=== PATIENT | male | born 1985 | race American Indian/Alaskan Native ===

== ENCOUNTER 2019-09-23 21:00 | Emergency (ER) | payer SELFPAY ==
--- NOTE | 2019-09-23 21:58 | Event Note ---
ED Screening Note ED Screening Note: pt presents with sore throat that began today no fever no n/v/d pain with swallowing states he is having difficulty with swallowing spitting out his secretions This initial assessment/diagnostic orders/clinical plan/treatment(s) is/are subject to change based on patients health status, clinical progression and re- assessment by fellow clinical providers in the ED. Further treatment and workup at subsequent clinical providers discretion. Patient/guardian urged not to elope from the ED as their condition may be serious if not clinically assessed and managed. Initial orders include: labs, CT neck
[2019-09-23] MEDS ORDERED: SODIUM CHLORIDE 0.9% 1000 ML 1,000 ML IV ONE (21:59)
[2019-09-23] MEDS ORDERED: CLINDAMYCIN 600 MG/50 mL 600 MG/50 ML BAG IV ONE (21:59)
[2019-09-23] MEDS ORDERED: dexAMETHasone 20 MG/5 ML VIAL IV ONE (21:59)
[2019-09-23 22:00] VITALS: BP 130/74
[2019-09-23 22:53] LABS: Basophils # (Auto) 0.1 K/mm3 (0.0-0.1); Basophils % (Auto) 0.7 % (0.0-1.8); Eosinophils % (Auto) 0.1 % (0.0-4.3); Hematocrit 46.6 % (35.5-45.6); Hemoglobin 15.7 gm/dl (11.8-15.2); Lymphocytes # (Auto) 2.4 K/mm3 (1.2-5.4); Lymphocytes % (Auto) 19.1 % (13.4-35.0); Mean Corpuscular HGB Conc 34 % (32-34); Mean Corpuscular Volume 89 fl (84-94); Monocytes # (Auto) 0.9 K/mm3 (0.0-0.8); Monocytes % (Auto) 7.2 % (0.0-7.3); Platelet Count 186 K/mm3 (140-440); Red Blood Count 5.24 M/mm3 (3.65-5.03); Red Cell Distribution Width 13.8 % (13.2-15.2)
[2019-09-23 23:11] LABS: Alanine Aminotransferase 21 units/L (7-56); Albumin 5.3 g/dL (3.9-5); BUN/Creatinine Ratio 16; Blood Urea Nitrogen 13 mg/dL (9-20); Calcium 9.6 mg/dL (8.4-10.2); Hemolysis Index 19
--- NOTE | 2019-09-24 00:15 | Emergency Department Report ---
ED ENT HPI - General Chief complaint: Sore Throat Stated complaint: SWOLLEN TONSILS Time Seen by Provider: 09/23/19 21:56 Source: patient Mode of arrival: Ambulatory Limitations: No Limitations - History of Present Illness Initial comments: This is a 34-year-old male presents the ED complaining of pain with swallowing started this morning. Patient states that every time he tries to swallow he feels a lot of pain in his throat. Patient states that prior to symptom starting he was drinking some drink which she cannot recall. Patient states he does not have any allergy that he is aware of. Patient denies taking any medication. Patient denies fever/chills/nausea vomiting/abdominal pain/chest pain or shortness of breath. MD complaint: sore throat - Related Data Previous Rx's Medication Instructions Recorded Last Taken Type Nystas/Diphen/Xyl Visc/Mylanta 30 ml MM Q6H PRN #120 ml 09/24/19 Unknown Rx [Magic Mouthwash] predniSONE [Deltasone] 20 mg PO QDAY #6 tab 09/24/19 Unknown Rx Allergies Allergy/AdvReac Type Severity Reaction Status Date / Time No Known Allergies Allergy Verified 09/23/19 21:03 ED Dental HPI - General Chief complaint: Sore Throat Stated complaint: SWOLLEN TONSILS Time Seen by Provider: 09/23/19 21:56 Source: patient Mode of arrival: Ambulatory Limitations: No Limitations - Related Data Previous Rx's Medication Instructions Recorded Last Taken Type Nystas/Diphen/Xyl Visc/Mylanta 30 ml MM Q6H PRN #120 ml 09/24/19 Unknown Rx [Magic Mouthwash] predniSONE [Deltasone] 20 mg PO QDAY #6 tab 09/24/19 Unknown Rx Allergies Allergy/AdvReac Type Severity Reaction Status Date / Time No Known Allergies Allergy Verified 09/23/19 21:03 ED Review of Systems ROS: Stated complaint: SWOLLEN TONSILS Other details as noted in HPI Comment: All other systems reviewed and negative ED Past Medical Hx - Past Medical History Previous Medical History?: No - Surgical History Past Surgical History?: No - Social History Smoking Status: Current Every Day Smoker Substance Use Type: Marijuana - Medications Home Medications: Home Medications Medication Instructions Recorded Confirmed Last Taken Type Nystas/Diphen/Xyl Visc/Mylanta 30 ml MM Q6H PRN #120 ml 09/24/19 Unknown Rx [Magic Mouthwash] predniSONE [Deltasone] 20 mg PO QDAY #6 tab 09/24/19 Unknown Rx ED Physical Exam - General Limitations: No Limitations General appearance: alert, in no apparent distress - Head Head exam: Present: atraumatic, normocephalic - Eye Eye exam: Present: normal appearance, PERRL, EOMI Pupils: Present: normal accommodation - ENT ENT exam: Present: mucous membranes moist - Expanded ENT Exam Expanded Mouth exam: Present: normal external inspection. Absent: drooling, trismus Teeth exam: Present: normal inspection Throat exam: Positive: tonsillar erythema, other (Uvula swelling, pink and moist. Uvula looks elongated, patent airways). Negative: tonsillomegaly, R peritonsillar mass, L peritonsillar mass - Neck Neck exam: Present: normal inspection, full ROM. Absent: tenderness, lymphadenopathy - Respiratory Respiratory exam: Present: normal lung sounds bilaterally. Absent: respiratory distress - Cardiovascular Cardiovascular Exam: Present: regular rate, normal rhythm. Absent: systolic murmur, diastolic murmur, rubs, gallop - GI/Abdominal GI/Abdominal exam: Present: soft, normal bowel sounds - Rectal Rectal exam: Present: deferred - Extremities Exam Extremities exam: Present: normal inspection - Back Exam Back exam: Present: normal inspection - Neurological Exam Neurological exam: Present: alert, oriented X3 - Psychiatric Psychiatric exam: Present: normal affect, normal mood - Skin Skin exam: Present: warm, dry, intact, normal color. Absent: rash ED Course Vital Signs 09/23/19 21:58 Temperature 98.9 F Pulse Rate 109 H Respiratory 18 Rate Blood Pressure 130/74 O2 Sat by Pulse 98 Oximetry ED Medical Decision Making - Lab Data Result diagrams: 09/23/19 22:36 09/23/19 22:36 Laboratory Last Values WBC 12.7 K/mm3 (4.5-11.0) H 09/23/19 22:36 RBC 5.24 M/mm3 (3.65-5.03) H 09/23/19 22:36 Hgb 15.7 gm/dl (11.8-15.2) H 09/23/19 22:36 Hct 46.6 % (35.5-45.6) H 09/23/19 22:36 MCV 89 fl (84-94) 09/23/19 22:36 MCH 30 pg (28-32) 09/23/19 22:36 MCHC 34 % (32-34) 09/23/19 22:36 RDW 13.8 % (13.2-15.2) 09/23/19 22:36 Plt Count 186 K/mm3 (140-440) 09/23/19 22:36 Lymph % (Auto) 19.1 % (13.4-35.0) 09/23/19 22:36 Wright % (Auto) 7.2 % (0.0-7.3) 09/23/19 22:36 Eos % (Auto) 0.1 % (0.0-4.3) 09/23/19 22:36 Baso % (Auto) 0.7 % (0.0-1.8) 09/23/19 22:36 Lymph # 2.4 K/mm3 (1.2-5.4) 09/23/19 22:36 Wright # 0.9 K/mm3 (0.0-0.8) H 09/23/19 22:36 Eos # 0.0 K/mm3 (0.0-0.4) 09/23/19 22:36 Baso # 0.1 K/mm3 (0.0-0.1) 09/23/19 22:36 Seg Neutrophils % 72.9 % (40.0-70.0) H 09/23/19 22:36 Seg Neutrophils # 9.2 K/mm3 (1.8-7.7) H 09/23/19 22:36 Sodium 137 mmol/L (137-145) 09/23/19 22:36 Potassium 3.7 mmol/L (3.6-5.0) 09/23/19 22:36 Chloride 95.3 mmol/L (98-107) L 09/23/19 22:36 Carbon Dioxide 21 mmol/L (22-30) L 09/23/19 22:36 Anion Gap 24 mmol/L 09/23/19 22:36 BUN 13 mg/dL (9-20) 09/23/19 22:36 Creatinine 0.8 mg/dL (0.8-1.5) 09/23/19 22:36 Estimated GFR > 60 ml/min 09/23/19 22:36 BUN/Creatinine Ratio 16 % 09/23/19 22:36 Glucose 71 mg/dL (75-100) L 09/23/19 22:36 Calcium 9.6 mg/dL (8.4-10.2) 09/23/19 22:36 Total Bilirubin 0.80 mg/dL (0.1-1.2) 09/23/19 22:36 AST 27 units/L (5-40) 09/23/19 22:36 ALT 21 units/L (7-56) 09/23/19 22:36 Alkaline Phosphatase 42 units/L (35-129) 09/23/19 22:36 Total Protein 8.1 g/dL (6.3-8.2) 09/23/19 22:36 Albumin 5.3 g/dL (3.9-5) H 09/23/19 22:36 Albumin/Globulin Ratio 1.9 % 09/23/19 22:36 - Radiology Data Radiology results: report reviewed, image reviewed CT NECK WITH CONTRAST HISTORY: Sore throat COMPARISON: None. TECHNIQUE: Routine CT of the neck is performed following intravenous contrast. All CT scans at this location are performed using CT dose reduction for ALARA by means of automated exposure control CONTRAST: 100 mL Omnipaque 300 FINDINGS: Skull Base: No significant abnormality. Parotid, Carotid, Retropharyngeal, Prevertebral, Pharyngeal Mucosal, and Roving [employer] Reporter Spaces: No abnormal mass, enhancing lesion or other significant abnormality. Faucial tonsillar region is normal. No CT findings to suggest tonsillar or peritonsillar abscess. Epiglottis is normal. Uvula appears prominent. Airway: Patent and without significant abnormality. Lymphatics: No lymphadenopathy. Vasculature: No significant abnormality. Osseous Structures: No significant abnormality Additional findings: None. IMPRESSION: No significant abnormality. Signer Name: Krystle Wilson MD Signed: 09/24/2019 12:54 AM Workstation Name: [id number] Transcribed By: BS Dictated By: Krystle Duvall MD Electronically Authenticated By: Krystle Duvall MD Signed Date/Time: 09/24/19 0054 - Medical Decision Making 34-year-old male presents with uvulitis. Patient given Decadron, 1 L of fluids and clindamycin IV in the ED. CT scan shows Are within normal limits. Discussed findings with patient. Discussed with patient to follow-up with primary care physician. Critical care attestation.: If time is entered above; I have spent that time in minutes in the direct care of this critically ill patient, excluding procedure time. ED Disposition Clinical Impression: Uvular swelling, Uvulitis Disposition: TO HOME OR SELFCARE Is pt being admited?: No Does the pt Need Aspirin: No Condition: Stable Instructions: Uvulitis (ED) Additional Instructions: Make sure to follow up with the primary care physician as discussed. Take all your medications as you've been prescribed. If you have any worsening symptoms or develop new symptoms please return to ED immediately. Prescriptions: predniSONE [Deltasone] 20 mg PO QDAY #6 tab Nystas/Diphen/Xyl Visc/Mylanta [Magic Mouthwash] 30 ml MM Q6H PRN #120 ml PRN Reason: Sore Throat Referrals: PRIMARY CARE, [Primary Care Provider] - 3-5 Days CHICO DESAI MD [Staff Physician] - 3-5 Days [facility] [Outside] - 3-5 Days [facility] [Outside] - 3-5 Days Forms: Accompanied Note, Work/School Release Form(ED) Time of Disposition: 01:07
--- NOTE | 2019-09-24 00:58 | Cat Scan Report ---
CT NECK WITH CONTRAST HISTORY: Sore throat COMPARISON: None. TECHNIQUE: Routine CT of the neck is performed following intravenous contrast. All CT scans at [facility] are performed using CT dose reduction for ALARA by means of automated exposure control CONTRAST: 100 mL Omnipaque 300 FINDINGS: Skull Base: No significant abnormality. Parotid, Carotid, Retropharyngeal, Prevertebral, Pharyngeal Mucosal, and Enamel Dipper Spaces: No abnorm al mass, enhancing lesion or other significant abnormality. Faucial tonsillar region is normal. No CT findings to suggest tonsillar or peritonsillar abscess. Epiglottis is normal. Uvula appears prominent. Airway: Patent and without significant abnormality. Lymphatics: No lymphadenopathy. Vasculature: No significant abnormality. Osseous Structures: No significant abnormality Additional findings: None. IMPRESSION: No significant abnormality. Signer Name: Krystle Wilson MD Signed: 09/24/2019 12:54 AM Workstation Name: [id number]
== END 2019-09-24 01:15 | disposition home or self-care (01) ==
LOC: ED 21:00
DX: K12.2 Cellulitis and abscess of mouth (principal); F17.200 Nicotine dependence, unspecified, uncomplicated; F12.10 Cannabis abuse, uncomplicated
CPT/HCPCS: 36415; 70491; 80053; 85025; 96365; 96375; 99284; J1100; J7030; Q9967